=== PATIENT | female | born 1940 ===

== ENCOUNTER 2018-03-03 09:07 | Emergency (ER) | payer OTHER ==
[~2018-03-03] VITALS: Ht 157.5 cm; Wt 77.1 kg
[~2018-03-03 09:07] MED LIST: ATENOLOL25 MG; PLAVIX75 MG; PROSOM2 MG
[2018-03-03] MEDS ORDERED: VASOFLEX TABLE1 EACH (09:21)
[2018-03-03] MEDS ORDERED: XANAX0.25 MG (09:21)
[2018-03-03] MEDS ORDERED: MEDROLPACK PO (10:14)
== END 2018-03-03 10:43 | disposition home or self-care (01) ==
LOC: ER 09:07
DX: M54.89 Other dorsalgia (principal)